=== PATIENT | male | born 1965 | race Two or more races ===

== ENCOUNTER 2017-07-16 08:40 | Emergency (ER) | payer OTHER ==
[~2017-07-16] VITALS: Ht 170.2 cm; Wt 74.8 kg
--- NOTE | 2017-07-16 08:40 | NUR ---
Patient discharged to home in stable condition. Written and verbal after care instructions given. Patient verbalizes understanding of instruction. ambulatory with steady gait. rr even and unlabored. pending md clifford.
[2017-07-16] MEDS ORDERED: KETOROLAC TROMETHAMINE INJ 30 MG/ML VIAL ONE (09:13)
[2017-07-16] MEDS ORDERED: MORPHINE SULFATE INJ 4 MG/ML DISP.SYRIN ONE (09:13)
[2017-07-16] MEDS ORDERED: ONDANSETRON 4 MG TAB.RAPDIS ONE (09:14)
[2017-07-16] MEDS ORDERED: MORPHINE SULFATE INJ 2 MG/ML DISP.SYRIN IM ONE (09:30)
[2017-07-16] MEDS ORDERED: KETOROLAC TROMETHAMINE INJ 60 MG/2 ML VIAL IM ONE (09:30)
[2017-07-16] MEDS ORDERED: ONDANSETRON 4 MG TAB.RAPDIS SL ONE (09:30)
--- NOTE | 2017-07-16 09:30 | NUR ---
MEDICATIONS GIVEN ORDERED.
[2017-07-16] MEDS ORDERED: HYDROCODONE/APAP 5/325MG 1 EACH TABLET PO ONE (10:30)
[2017-07-16] MEDS ORDERED: HYDROCODONE/APAP 5/325MG 1 EACH TABLET ONE (10:47)
[2017-07-16 11:12] VITALS: BP 119/71
== END 2017-07-16 11:13 | disposition home or self-care (01) ==
LOC: ER 08:43
DX: S39.012A Strain of muscle, fascia and tendon of lower back, initial encounter (principal); Z86.11 Personal history of tuberculosis; X58.XXXA Exposure to other specified factors, initial encounter; Y92.89 Other specified places as the place of occurrence of the external cause; Y93.89 Activity, other specified; Y99.8 Other external cause status
CPT/HCPCS: A4606; J1885; J2270; Q0162; Z7610

== ENCOUNTER 2017-11-20 10:43 | Inpatient (IN) | payer OTHER ==
[~2017-11-20] VITALS: Ht 167.6 cm; Wt 74.8 kg
[2017-11-20] MEDS ORDERED: ONDANSETRON HCL/PF 4 MG/2 ML VIAL IVP ONE (11:30)
[2017-11-20] MEDS ORDERED: HYDROMORPHONE INJ 2 MG/ML DISP.SYRIN IV ONE (11:30)
[2017-11-20] MEDS ORDERED: IV NS 0.9% 1,000 ML BAG IV ONE (11:30)
[2017-11-20 11:38] LABS: BASOPHILS % (AUTO) 0.9 % (0.0-2.0); EOSINOPHILS # (AUTO) 0.1 /CMM (0.0-0.7); EOSINOPHILS % (AUTO) 1.7 % (0.0-6.0); HEMATOCRIT 41 % (39-51); HEMOGLOBIN 14.2 g/dL (13.5-17.5); LYMPHOCYTES # (AUTO) 0.7 /CMM (0.8-4.8); LYMPHOCYTES % (AUTO) 13.9 % (20.0-44.0); MEAN CORPUSCULAR HEMOGLOBIN 29 PG (26.0-33.0); MEAN CORPUSCULAR HGB CONC 35 g/dl (31.0-36.0); MEAN CORPUSCULAR VOLUME 84 fL (80-96); MONOCYTES # (AUTO) 0.6 /CMM (0.1-1.30); MONOCYTES % (AUTO) 11.2 % (2.0-12.0); NEUTROPHILS # (AUTO) 3.8 /CMM (1.8-8.9); NEUTROPHILS % (AUTO) 72.3 % (43.0-81.0); PLATELET COUNT (AUTO) 166 /CMM (150-450); RDW COEFFICIENT OF VARIATION 12.3 (11.5-15.0); RED BLOOD CELL COUNT(AUTO) 4.86 MIL/uL (4.5-6.0); WHITE BLOOD COUNT (AUTO) 5.2 K/uL (4.3-11.0)
[2017-11-20] MEDS ORDERED: ONDANSETRON HCL/PF 4 MG/2 ML VIAL ONE (11:46)
[2017-11-20] MEDS ORDERED: HYDROMORPHONE 1 MG/1 ML DISP.SYRIN ONE (11:46)
[2017-11-20 11:47] LABS: CALCIUM, SERUM 8.9 mg/dL (8.5-10.1); CREATININE 0.9 mg/dL (0.6-1.3); POTASSIUM 3.1 mmol/L (3.5-5.1)
[2017-11-20] MEDS ORDERED: HYDROMORPHONE INJ 2 MG/ML DISP.SYRIN ONE ×2 (11:54→14:39)
[2017-11-20 12:06] LABS: EOSINOPHILS % (MANUAL) 5 % (0-4); LYMPHOCYTES % (MANUAL) 17 % (16-48); MONOCYTES % (MANUAL) 9 % (0-11.0); NEUTROPHILS % (MANUAL) 69 (42-76)
--- NOTE | 2017-11-20 12:06 | NUR ---
MEDICATIONS GIVEN ORDERED
[2017-11-20] MEDS ORDERED: PYRI50TA14 PO (13:15)
[2017-11-20] MEDS ORDERED: ONDA4TAB8 PO (13:15)
[2017-11-20] MEDS ORDERED: IBUP-1955 PO (13:15)
[2017-11-20] MEDS ORDERED: HYDR-552 PO (13:15)
[2017-11-20 13:50] LABS: APPEARANCE,URINE SL CLOUDY (CLEAR); BILIRUBIN,URINE NEGATIVE (NEGATIVE); BLOOD, URINE 3+ Ery/uL (NEGATIVE); COLOR,URINE YELLOW (YELLOW); KETONES,URINE NEGATIVE (NEGATIVE); LEUKOCYTE ESTERASE ,URINE NEGATIVE (NEGATIVE); NITRITE, URINE NEGATIVE (NEGATIVE); PH,URINE 5.5 (5.0-8.0); PROTEIN,URINE NEGATIVE (NEGATIVE); UGLUCOSE NEGATIVE (NEGATIVE); UROBILINOGEN,URINE 0.2 EU/dL (0.2)
[2017-11-20 13:55] LABS: BACTERIA,URINE None seen /HPF (None Seen); RBC,URINE 51-80 /HPF (0-2); SQUAMOUS EPITHELIAL CELL,UR Few /HPF (None Seen); WBC,URINE 0-2 /HPF (0-3)
--- NOTE | 2017-11-20 14:04 | NUR ---
[facility] ROOM 316-1
--- NOTE | 2017-11-20 14:23 | NUR ---
REPORT GIVEN TO SANTOS GANDARA FOR RODRIGUEZ
[2017-11-20] MEDS ORDERED: HYDROMORPHONE 1 MG/1 ML DISP.SYRIN IV ONE (14:30)
--- NOTE | 2017-11-20 15:00 | NUR ---
ms rn radiation notes Admitted a 52 years old male patient who came from ER due to Kidney disease. Patient is alert and oriented x 4, verbally responsive and able to make needs known. IV intact and patent. Will start IVF as ordered by . Informed Dr. Nugent regarding admission orders and diet order and made aware. Skin assessment done and intact. NPO at this time for US of the abdomen for today. Informed family and made aware. Pain is on tolerable level at this time, pain medication was given in ER prior transport. Kept patient clean and comfortable in bed, call light with in patient reach, will continue to monitor accordingly.
[2017-11-20] MEDS ORDERED: IV NS 0.9% 1,000 ML IV PRN (15:29)
[2017-11-20] MEDS ORDERED: MAG HYDROX/AL HYDROX/SIMETH 30 ML UDC PO PRN (15:30)
[2017-11-20] MEDS ORDERED: ZOLPIDEM TARTRATE 5 MG TABLET PO PRN (15:30)
[2017-11-20] MEDS ORDERED: MORPHINE SULFATE INJ 2 MG/ML DISP.SYRIN IV PRN (15:30)
[2017-11-20] MEDS ORDERED: Z GUARD REMEDY 2 OZ OINT TP PRN (15:30)
[2017-11-20] MEDS ORDERED: MAGNESIUM HYDROXIDE 30 ML UDC PO PRN (15:30)
[2017-11-20] MEDS ORDERED: ONDANSETRON HCL/PF 4 MG/2 ML VIAL IVP PRN (15:30)
[2017-11-20] MEDS ORDERED: ACETAMINOPHEN 325 MG TABLET PO PRN (15:30)
[2017-11-20] MEDS ORDERED: POTASSIUM CHLORIDE 20 MEQ TAB.PRT.SR PO ONE (16:00)
[2017-11-20 16:08] VITALS: BP 118/73
--- NOTE | 2017-11-20 18:26 | NUR ---
MS RN notes Informed Dr. Nugent regarding patient sugar of 54 and per MD to discontinue IV NS and change it to D5 1/2 ns @ 75 ml/hr. All orders carried out and noted. Will continue to monitor accordingly.
--- NOTE | 2017-11-20 19:29 | NUR ---
ms rn closing notes All needs provided, attended, and anticipated. Kept patient clean and comfortable in bed, call light with in patient reach, endorsed to next shift RN to continue care.
[2017-11-20 20:00] VITALS: BP 139/79
[2017-11-20] MEDS: MORPHINE SULFATE INJ 4 MG/ML DISP.SYRIN IV PRN (21:12)
--- NOTE | 2017-11-20 21:45 | NUR ---
MS DUONG NOTES PT HAD TEMPERATURE 102.6. TYLENOL GIVEN THE CALLED MD AND SPOKE TO DR BEACH AND ORDERED BLOOD CULTURE WELL RAPID INFLUENZA TEST.KEPT PT COMFORTABLE AT ALL TIMES. WILL CONTINUE TO MONITOR,PLACE CALL LIGHT AT REACH.
--- NOTE | 2017-11-21 00:30 | NUR ---
ASSISTANT INVENTORY MANAGER/NOTES RE-ASSESSMENT TEMPERATURE RE- CHECKED AFTER TYLENOL GIVEN . 98.6F. PT RESTING COMFORTABLY IN BED WITHOUT ANY ACUTE DISTRESS NOTED.
[2017-11-21] MEDS: MORPHINE SULFATE INJ 4 MG/ML DISP.SYRIN IV PRN ×2 (06:18→18:40)
--- NOTE | 2017-11-21 06:18 | NUR ---
LENS GRINDER/NOTES PT WOKE UP AND STARTED COMPLAINING OF RIGHT LOWER BACK PAIN. MORPHINE GIVEN SALLY IVP ORDERED. NO N/V NOTED. IVF STILL INFUSING. SLEPT WELL AFTER PAIN MEDS GIVEN. KEPT HIM WARM AND COMFORTABLE AT ALL TIMES. BED IN LOW AND LOCK IN POSITION PLACE CALL LIGHT AT REACH. ENDORSE TO AM NURSE FOR CONTINUITY OF CARE.PLACE CALL LIGHT AT REACH.
[2017-11-21 07:31] LABS: BASOPHILS % (AUTO) 0.2 % (0.0-2.0); EOSINOPHILS # (AUTO) 0.1 /CMM (0.0-0.7); EOSINOPHILS % (AUTO) 1.6 % (0.0-6.0); HEMATOCRIT 42 % (39-51); HEMOGLOBIN 14.8 g/dL (13.5-17.5); LYMPHOCYTES # (AUTO) 1.5 /CMM (0.8-4.8); LYMPHOCYTES % (AUTO) 29.9 % (20.0-44.0); MEAN CORPUSCULAR HEMOGLOBIN 30 PG (26.0-33.0); MEAN CORPUSCULAR HGB CONC 35 g/dl (31.0-36.0); MEAN CORPUSCULAR VOLUME 84 fL (80-96); MONOCYTES # (AUTO) 0.6 /CMM (0.1-1.30); MONOCYTES % (AUTO) 12.6 % (2.0-12.0); NEUTROPHILS # (AUTO) 2.7 /CMM (1.8-8.9); NEUTROPHILS % (AUTO) 55.7 % (43.0-81.0); PLATELET COUNT (AUTO) 143 /CMM (150-450); RDW COEFFICIENT OF VARIATION 13.1 (11.5-15.0); RED BLOOD CELL COUNT(AUTO) 4.99 MIL/uL (4.5-6.0); WHITE BLOOD COUNT (AUTO) 4.9 K/uL (4.3-11.0)
[2017-11-21 07:43] LABS: INR 1.13 (0.87-1.13); PROTHROMBIN TIME 11.8 SECS (9.5-12.7)
[2017-11-21 07:55] LABS: BILIRUBIN,TOTAL 0.5 mg/dL (0.2-1.0); CALCIUM, SERUM 8.7 mg/dL (8.5-10.1); CREATININE 0.8 mg/dL (0.6-1.3); MAGNESIUM 1.7 mg/dL (1.8-2.4); PHOSPHORUS 3.3 mg/dL (2.5-4.9); POTASSIUM 3.3 mmol/L (3.5-5.1); TOTAL PROTEIN, SERUM 7.5 g/dL (6.4-8.2)
[2017-11-21 08:00] VITALS: BP_SYST 104; BP_SYST 155; BP_DIAS 65; BP_DIAS 81
[2017-11-21 08:05] LABS: CREATINE KINASE MB 1.3 ng/mL (0-3.6)
[2017-11-21] MEDS ORDERED: NICOTINE PATCH (7MG) 7 MG PATCH.TD24 TD SCH (09:00)
[2017-11-21] MEDS: HYDROCODONE/APAP 5/325MG 1 EACH TABLET PO PRN ×2 (10:23→16:05)
[2017-11-21] MEDS ORDERED: POTASSIUM CHLORIDE 20 MEQ TAB.PRT.SR PO SCH (11:30)
[2017-11-21] MEDS ORDERED: POTASSIUM CHLORIDE 20 MEQ TAB.PRT.SR PO ONE (13:00)
[2017-11-21] MEDS: Magnesium 1GM/D5W 100ML PREMIX 100 ML IV SCH ×2 (13:35→15:22)
[2017-11-21] MEDS: IV D5/0.45 NACL 1,000 ML IV PRN ×2 (13:35→22:39)
--- NOTE | 2017-11-21 14:00 | NUR ---
MS RN NOTES RECEIVED PATIENT FROM [facility] PATIENT IN STABLE CONDITION. ALERT, ORIENTED X3.RESTING IN BED. DENIES ANY PAIR OR DISCOMFORT. BED IN LOW LOCKED POSITION. CALL LIGHT WITHIN REACH. WILL CONTINUE TO MONITOR.
--- NOTE | 2017-11-21 19:30 | NUR ---
MS RN NOTES PATEIN IN BED RESTING NO SOB OR ACUTE DISTRESS NOTED. ALL DUE MEDICATIONS ADMINISTERED, ALL NEEDS MET. PATIENT KEPT COMFORTABLE. ENDORSED CAR TO PM SHIFT.
[2017-11-21 20:00] VITALS: BP 116/72
--- NOTE | 2017-11-21 20:00 | NUR ---
RN NOTES PATIENT IN BED, ALERT AND ORIENTED X4, CALM, NO SOB, TOLERATING ROOM AIR, DENIES ANY PAIN AT THIS TIME, RECEIVED PAIN MEDICATION EARLIER. RAC PERIPHERAL LINE IS PATENT AND INFUSING WELL. CONTINENT OF BOWEL AND BLADDER. NEEDS ATTENDED, CALL LIGHT WITHIN REACH.
[2017-11-22] MEDS: HYDROCODONE/APAP 5/325MG 1 EACH TABLET PO PRN ×3 (03:37→12:51)
--- NOTE | 2017-11-22 07:27 | NUR ---
MS RN OPENING NOTE RECEIVED BEDSIDE SBAR REPORT ON THE PATIENT. PATIENT IS A/O X3,ASLEEP, EASILY AWAKEN. CHEST IS RISING EQUALLY BILATERALLY. NO S/S OF DISTRESS. DENIED PAIN AT THIS TIME. SPO2 IS 98% ON ROOM AIR. ALL NEEDS ARE MET AT THIS TIME. PATIENT IS IN BED. BED IS LOCKED IN THE LOWEST POSITION, SIDE RAILS ARE P X3, BED ALARM IS ON. CALL LIGHT WITHIN REACH. PATIENT EDUCATED TO USE THE CALL LIGHT TO CALL FOR ASSISTANCE. PATIENT VERBALIZED UNDERSTANDING. WILL CONTINUE TO ASSESS/MONITOR THROUGHOUT THE SHIFT.
[2017-11-22] MEDS: PANTOPRAZOLE 40 MG TABLET.DR PO SCH ×2 (07:30→08:44)
[2017-11-22 08:00] VITALS: BP 118/64
[2017-11-22 08:18] LABS: CALCIUM, SERUM 8.7 mg/dL (8.5-10.1); CREATININE 0.9 mg/dL (0.6-1.3); POTASSIUM 3.1 mmol/L (3.5-5.1)
--- NOTE | 2017-11-22 10:49 | NUR ---
PROTONIX SCANNED AND ADMINISTERED ORDERED ON TIME. THE SYSTEM DID NOT SAVE. MANUALLY UPDATED THE SYSTEM TO CHANGE THE MEDICATION STATUS TO ADMINISTERED.
[2017-11-22] MEDS: POTASSIUM CHLORIDE 20 MEQ TAB.PRT.SR PO SCH ×2 (11:00→12:51)
--- NOTE | 2017-11-22 13:39 | NUR ---
MS HYDRAULIC JACK ADJUSTER NOTE Discharge education provided via teach back method. Patient/ verbalized understanding of the teachings. IV catheter removed with the tip intact. Oclusive dressing applied. All belongings are accounted for. Denies pain/discomfort at this time. Chest is rising equally bilaterally. Spo2 98% on RA. VS WNL. The at the bedside. Patient is leaving the unit via wheelchait accompanied by the and the BAY Smith.
--- NOTE | 2017-11-22 14:03 | NUR ---
Patient left the hospital in stable condition via private car.
== END 2017-11-22 13:55 | disposition home or self-care (01) | DRG 694 ==
LOC: ER 10:44 → MED 14:31
PROVIDERS: ADMIT Internal Medicine; ATTEND Internal Medicine
DX: N20.0 Calculus of kidney (principal); Q61.3 Polycystic kidney, unspecified; E87.6 Hypokalemia
CPT/HCPCS: 36415; 71045-TC; 76700-TC; 80048-TC; 80053-TC; 80061-TC; 81000-TC; 82553-TC; 82962-TC; 83690-TC; 83735-TC; 84100-TC; 85025-TC; 85652-TC; 85730-TC; 87040-TC; 87081-TC; 87400; A4606; J1170; J2270; J2405; J3475; J3490; J7030; Z7610